=== PATIENT | female | born 1995 | race Caucasian/White ===

== ENCOUNTER 2017-04-06 20:09 | Emergency (ER) | payer SELFPAY ==
[2017-04-06] MEDS ORDERED: Sodium Chloride 0.9% 10 ML Syringe FLUSH PRN (20:15)
[2017-04-06] MEDS ORDERED: Sodium Chloride 0.9% 1,000 ML IV ONE ×2 (20:15→21:07)
--- NOTE | 2017-04-06 20:34 | EDM.PDOC ---
ED HPI GENERAL MEDICAL PROBLEM - General Chief Complaint: Cardiovascular Problem Stated Complaint: chest pain Time Seen by Provider: 04/06/17 20:13 Source of Information: Reports: Patient, EMS, Family, Other History Limitations: Reports: No Limitations - History of Present Illness INITIAL COMMENTS - FREE TEXT/NARRATIVE: Patient comes in this evening with complaints of chest pain. She was at [facility] practice this evening when she complained of left lower chest pain, dizziness, and was weak in the knees and had problems standing. Patient states practice included running a mile. She was brought in with several people that were with her at the time. Her only stated medical history includes epilepsy for which she takes Epilim [place] Dep[place]. She is unsure of her dosage, we are in the process of verifying that. Patient states that her chest pain is worse on palpation. She denies any surgical history. She denies having any cardiac history. Patient denies smoking, alcohol , or any drug use. Patient is sexually active, states sex is protected, states she has the Norplant in her arm. Epilim dosage on visiting with her mother is 200 mg x 2 tablets orally bid. Onset: Today, Sudden Quality: Reports: Ache, Sharp Severity: Moderate Improves with: Reports: None Worsens with: Reports: Other (palpation) Context: Reports: Activity Associated Symptoms: Reports: Chest Pain, Diaphoresis, Weakness Treatments BALANCER SCALE: Reports: Other (see below) (placed in cold bath) - Related Data Allergies Allergy/AdvReac Type Severity Reaction Status Date / Time citric acid Allergy Swelling Verified 04/06/17 21:07 ED ROS GENERAL - Review of Systems Review Of Systems: See Below Constitutional: Reports: Weakness HEENT: Reports: No Symptoms Respiratory: Reports: No Symptoms Cardiovascular: Reports: Chest Pain Endocrine: Reports: No Symptoms GI/Abdominal: Reports: No Symptoms : Reports: No Symptoms Musculoskeletal: Reports: Muscle Pain (weakness in legs) Skin: Reports: No Symptoms Neurological: Reports: No Symptoms Psychiatric: Reports: Anxiety Hematologic/Lymphatic: Reports: No Symptoms Immunologic: Reports: No Symptoms ED EXAM, GENERAL - Physical Exam Exam: See Below Exam Limited By: No Limitations General Appearance: Alert, WD/WN, Moderate Distress Eye Exam: Bilateral Eye: EOMI, PERRL Ears: Normal TMs Nose: Normal Inspection, Normal Mucosa, No Blood Throat/Mouth: Normal Inspection, Normal Lips, Normal Teeth, Normal Gums, Normal Oropharynx, Normal Voice, No Airway Compromise Head: Atraumatic, Normocephalic Neck: Normal Inspection, Supple, Non-Tender, Full Range of Motion Respiratory/Chest: No Respiratory Distress, Lungs Clear, Normal Breath Sounds, No Accessory Muscle Use, Chest Non-Tender Cardiovascular: Normal Peripheral Pulses, Regular Rate, Rhythm, No Edema, No Gallop, No JVD, No Murmur, No Rub, Other (increased pain on palpation of lower left sternal border) Peripheral Pulses: 2+: Posterior Tibial (L), Posterior Tibial (R), Dorsalis Pedis (L), Dorsalis Pedis (R) GI/Abdominal: Normal Bowel Sounds, Soft, Non-Tender, No Organomegaly, No Distention Extremities: Normal Inspection Neurological: Alert, Oriented, CN II-XII Intact, Normal Cognition, Normal Gait, Normal Reflexes, No Motor/Sensory Deficits Psychiatric: Anxious Skin Exam: Warm, Dry, Intact, Normal Color, No Rash, Other (she is shivering, wet cold clothes have been removed, patient placed in cold bath at the [facility]) Lymphatic: No Adenopathy EKG INTERPRETATION EKG Date: 04/06/17 Time: 20:19 Rhythm: NSR (normal sinus rhythm with sinus arrhythmia) [place]: Normal P-Wave: Present QRS: Normal ST-T: Normal QT: Normal Comparison: NA - No Prior EKG EKG Interpretation Comments: sinus rhythm with sinus arrhythmia Normal ECG Course - Orders/Labs/Meds Orders: Active Orders 24 hr Category Date Time Status EKG Documentation Completion [RC] ROUTINE Care 04/06/17 20:13 Ordered Chest 1V Frontal [CR] Stat Exams 04/06/17 20:15 Taken CBC WITH AUTO DIFF [HEME] Stat Lab 04/06/17 20:24 Received CK W CKMB [CHEM] Stat Lab 04/06/17 20:24 Received COMPREHENSIVE METABOLIC PN,CMP [CHEM] Stat Lab 04/06/17 20:24 Received CRP [C-REACTIVE PROTEIN] [CHEM] Stat Lab 04/06/17 20:24 Received HCG QUALITATIVE,URINE [URCHEM] Stat Lab 04/06/17 20:34 Uncollected MAGNESIUM [CHEM] Stat Lab 04/06/17 20:24 Received TROPONIN I [CHEM] Stat Lab 04/06/17 20:24 Received UA W/MICROSCOPIC [URIN] Stat Lab 04/06/17 20:13 Uncollected Sodium Chloride 0.9% [Normal Saline] 1,000 ml Med 04/06/17 20:15 Active IV ONETIME Sodium Chloride 0.9% [Saline Flush] Med 04/06/17 20:15 Active 10 ml FLUSH ASDIRECTED PRN Saline Lock Insert [OM.PC] Routine Oth 04/06/17 20:15 Ordered Medication Orders Sodium Chloride (Normal Saline) 1,000 mls @ 999 mls/hr IV ONETIME ONE Stop: 04/06/17 21:15 Sodium Chloride (Saline Flush) 10 ml FLUSH ASDIRECTED PRN PRN Reason: Keep Vein Open Meds: Medications Generic Name Dose Route Start Last Admin Trade Name Freq PRN Reason Stop Dose Admin Sodium Chloride 1,000 mls @ 999 mls/hr 04/06/17 20:15 Normal Saline IV 04/06/17 21:15 ONETIME ONE Sodium Chloride 10 ml 04/06/17 20:15 Saline Flush FLUSH ASDIRECTED PRN Keep Vein Open - Radiology Interpretation Free Text/Narrative:: Normal chest x-ray Departure - Departure Time of Disposition: 22:11 Disposition: Home, Self-Care 01 Condition: Good Clinical Impression: Cystitis Instructions: Urinary Tract Infection, Adult Forms: ED Department Discharge Additional Instructions: Stay well-hydrated. Finish all of the Macrobid even if feeling better. I would suggest abstaining from physical exercise for the next couple days. Follow-up at the clinic with a primary doctor in the next week to 10 days. We are culturing her urine, we will call you if we need to switch the regimen due to bacterial resistance of the Macrobid. Please call the emergency room with any questions or concerns. - Problem List & Annotations (1) Cystitis SNOMED Code(s): 96858022 Code(s): N30.90 - CYSTITIS, UNSPECIFIED WITHOUT HEMATURIA Status: Acute Priority: Low Current Visit: Yes - Problem List Review Problem List Initiated/Reviewed/Updated: Yes - My Orders Last 24 Hours: My Active Orders 04/06/17 20:13 EKG Documentation Completion [RC] ROUTINE UA W/MICROSCOPIC [URIN] Stat 04/06/17 20:15 Chest 1V Frontal [CR] Stat Sodium Chloride 0.9% [Normal Saline] 1,000 ml IV ONETIME Sodium Chloride 0.9% [Saline Flush] 10 ml FLUSH ASDIRECTED PRN Saline Lock Insert [OM.PC] Routine 04/06/17 20:24 CBC WITH AUTO DIFF [HEME] Stat CK W CKMB [CHEM] Stat COMPREHENSIVE METABOLIC PN,CMP [CHEM] Stat CRP [C-REACTIVE PROTEIN] [CHEM] Stat MAGNESIUM [CHEM] Stat TROPONIN I [CHEM] Stat 04/06/17 20:34 HCG QUALITATIVE,URINE [URCHEM] Stat - Assessment/Plan Last 24 Hours: My Active Orders 04/06/17 20:13 EKG Documentation Completion [RC] ROUTINE UA W/MICROSCOPIC [URIN] Stat 04/06/17 20:15 Chest 1V Frontal [CR] Stat Sodium Chloride 0.9% [Normal Saline] 1,000 ml IV ONETIME Sodium Chloride 0.9% [Saline Flush] 10 ml FLUSH ASDIRECTED PRN Saline Lock Insert [OM.PC] Routine 04/06/17 20:24 CBC WITH AUTO DIFF [HEME] Stat CK W CKMB [CHEM] Stat COMPREHENSIVE METABOLIC PN,CMP [CHEM] Stat CRP [C-REACTIVE PROTEIN] [CHEM] Stat MAGNESIUM [CHEM] Stat TROPONIN I [CHEM] Stat 04/06/17 20:34 HCG QUALITATIVE,URINE [URCHEM] Stat Assessment:: cystitis Plan: Stay well-hydrated. Finish all of the Macrobid even if feeling better. I would suggest abstaining from physical exercise for the next couple days. Follow-up at the clinic with a primary doctor in the next week to 10 days. We are culturing her urine, we will call you if we need to switch the regimen due to bacterial resistance of the Macrobid. Please call the emergency room with any questions or concerns.
[2017-04-06 21:03] LABS: CHLORIDE,CL 101 mmol/L (98-107); SODIUM,NA 141 mmol/L (136-145)
[2017-04-06] MEDS ORDERED: Nitrofurantoin Monohydrate/Macrocrystalline 100 MG Cap PO ONE (21:52)
[2017-04-06 22:51] VITALS: BP 114/75
== END 2017-04-06 22:17 | disposition home or self-care (01) ==
LOC: VM.ED 20:09
DX: N30.00 Acute cystitis without hematuria (principal); Z91.018 Allergy to other foods
CPT/HCPCS: 71010; 80053; 81001; 81025; 82550; 82553; 83735; 84484; 85025; 86140; 87086; 93005; 96360; 99285; A9270; J7030; 99284-GF